=== PATIENT | male | born 1980 | race African-American/Black ===

== ENCOUNTER 2018-04-15 21:39 | Emergency (ER) | payer SELFPAY ==
[~2018-04-15] VITALS: Ht 180.3 cm; Wt 109.1 kg
[2018-04-15 21:43] VITALS: BP 170/100; PULSE 100; TEMP 98.6
== END 2018-04-15 22:35 | disposition home or self-care (01) ==
LOC: COL.ER 21:39
DX: S69.91XA Unspecified injury of right wrist, hand and finger(s), initial encounter (principal); X50.0XXA Overexertion from strenuous movement or load, initial encounter